=== PATIENT | female | born 1985 | race Caucasian/White ===

== ENCOUNTER → 2023-11-04 | Outpatient (CLI) | payer OTHER | LOC: M RAD 14:28 | PROVIDERS: ATTEND Physician Assistant | DX: R07.0 Pain in throat (principal) ==

== ENCOUNTER 2025-01-03 08:24 | Day surgery (SDC) | payer OTHER ==
[~2025-01-03] VITALS: Ht 160 cm; Wt 71.9 kg
[~2025-01-03 08:24] MED LIST: METF500T13 PO; MULT-90 PO; NAPR220C24 PO; SYNT25TA PO
[2025-01-03] MEDS ORDERED: GLYCOPYRROLATE INJ 0.2 MG/ML 2 ML VIAL As Ordered ONE (10:06)
[2025-01-03] MEDS ORDERED: LIDOCAINE 2% 100 MG/5 ML SDV (FOR ANES.) As Ordered ONE (10:06)
[2025-01-03 10:22] VITALS: TEMP 99.1
[2025-01-03 10:33] VITALS: BP 125/79; O2SAT 96
== END 2025-01-03 10:40 | disposition home or self-care (01) ==
LOC: M OPP 08:24
PROVIDERS: ATTEND Surgery
DX: K63.5 Polyp of colon (principal); R10.84 Generalized abdominal pain; K44.9 Diaphragmatic hernia without obstruction or gangrene; K21.00 Gastro-esophageal reflux disease with esophagitis, without bleeding; Z88.1 Allergy status to other antibiotic agents; Z79.84 Long term (current) use of oral hypoglycemic drugs; Z79.899 Other long term (current) drug therapy
CPT/HCPCS: 43239; 45385; 88305; J1596; J3010